=== PATIENT | female | born 1930 | race Caucasian/White ===

== ENCOUNTER 2022-01-11 10:42 | Inpatient (IN) | payer MEDICARE ==
[2022-01-11 11:36] LABS: Bilirubin Neg (Negative); Blood, Urine Negative (Negative); Clarity Clear (Clear); Glucose, Urine (Dipstick) Normal (Negative); Ketone, Urine Negative (Negative); Leukocyte Negative (Negative); Nitrite Negative (Negative); Protein, Urine (Dipstick) Negative (Neg-Trace); Specific Gravity, Urine 1.005 (1.002-1.036); Urobilinogen Normal mg/dL (Less than 2)
[2022-01-11 11:39] LABS: #Neutrophils 7.3 10x3/uL (1.5-8.4); %Basophils 0.4 % (0.0-2.0); %Eosinophils 0.4 % (0.0-6.0); %Lymphocytes 10.3 % (18.0-47.0); %Monocytes 10.2 % (0.0-10.0); %Neutrophils 78.3 % (40.0-75.0); Mean Corpuscular HGB CONC 32.9 g/dL (32.0-36.0); Mean Corpuscular Hemoglobin 28.3 pg (27.0-33.0); Mean Corpuscular Volume 85.9 fl (81.6-98.3); Mean Platelet Volume 10.4 fl (7.4-10.4); Platelet Count 188 10x3/uL (150-450); RBC Distribution Width 15.1 % (11.5-14.5); White Blood Cell (WBC) Count 9.3 10x3/uL (3.5-10.5)
[2022-01-11 11:50] LABS: INR-International Normal Ratio 0.9; PTT 25.8 sec (22.0-33.0); Prothrombin Time 9.9 sec (9.5-12.1)
[2022-01-11 11:53] LABS: ALT (SGPT) 16 U/L (8-55); AST (SGOT) 22 U/L (5-34); Albumin 3.5 g/dL (3.4-4.8); Alkaline Phosphatase 62 U/L (40-110); Anion Gap 13 mmol/L (10-20); BUN (Urea Nitrogen) 13 mg/dL (9.8-20.1); Bilirubin, Total 0.6 mg/dL (0.2-1.2); Calc. Creatinine Clearance 0 mL/min (70-130); Calcium 8.4 mg/dL (7.8-10.44); Carbon Dioxide 25 mmol/L (23-31); Chloride 102 mmol/L (98-107); Estimated GFR 70; Globulin 2.3 g/dL (2.4-3.5); Glucose 95 mg/dL (83-110); Potassium 3.8 mmol/L (3.5-5.1); Protein, Total 5.8 g/dL (5.8-8.1); Sodium 136 mmol/L (136-145)
[2022-01-11] MEDS ORDERED: hydrALAZINE 20 MG/ML VIAL SLOW IVP PRN (13:53)
[2022-01-11] MEDS ORDERED: Aspirin Chewable 81 MG TAB ONE (13:56)
[2022-01-11] MEDS ORDERED: Iopamidol 370 76% 100 ML VIAL ONE (15:40)
[2022-01-11 16:29] LABS: Troponin I 0.018 ng/mL (< 0.028)
[2022-01-11 18:24] LABS: Troponin I 0.018 ng/mL (< 0.028)
[2022-01-11] MEDS: Atorvastatin Calcium 40 MG TAB PO SCH (21:14)
[2022-01-11] MEDS ORDERED: Melatonin 3 MG TAB PO PRN (21:50)
[2022-01-12 05:58] LABS: Anion Gap 13 mmol/L (10-20); BUN (Urea Nitrogen) 13 mg/dL (9.8-20.1); Calc. Creatinine Clearance 37 mL/min (70-130); Carbon Dioxide 24 mmol/L (23-31); Cardiac Risk 4.9 (Less than 4.5); Chloride 101 mmol/L (98-107); Cholesterol 222 mg/dl (< 200 Desired); Estimated GFR 68; Glucose 121 mg/dL (83-110); HDL Cholesterol 45 mg/dL (>60 Neg Risk); LDL Cholesterol, Calculated 154 mg/dL; Potassium 3.3 mmol/L (3.5-5.1); Sodium 135 mmol/L (136-145); Triglycerides 115 mg/dL (Less than 150)
[2022-01-12 06:01] LABS: #Monocytes 0.7 10x3/uL (0.0-1.1); #Neutrophils 6.2 10x3/uL (1.5-8.4); %Basophils 0.5 % (0.0-2.0); %Eosinophils 0.2 % (0.0-6.0); %Lymphocytes 12.8 % (18.0-47.0); %Monocytes 9.2 % (0.0-10.0); %Neutrophils 76.8 % (40.0-75.0); Hemoglobin 13.6 g/dL (12.0-15.5); Mean Corpuscular Hemoglobin 28.3 pg (27.0-33.0); Mean Corpuscular Volume 83.3 fl (81.6-98.3); Mean Platelet Volume 10.8 fl (7.4-10.4); Platelet Count 203 10x3/uL (150-450); RBC Distribution Width 15.1 % (11.5-14.5)
[2022-01-12] MEDS ORDERED: Potassium Chloride 20 MEQ TAB PO SCH (08:15)
[2022-01-12] MEDS: Aspirin 81 mg Enteric Coated Tablet PO SCH (10:00)
[2022-01-12 11:14] VITALS: BMI 25.0
[2022-01-12 12:53] LABS: Hemoglobin A1c 5.8 % (4.0-6.0)
[2022-01-12] MEDS: Acetaminophen 500 MG TAB PO SCH ×2 (16:43→21:28)
[2022-01-12] MEDS: Atorvastatin Calcium 40 MG TAB PO SCH (21:28)
[2022-01-13] MEDS: Acetaminophen 500 MG TAB PO SCH ×3 (08:36→20:07)
[2022-01-13] MEDS: Aspirin 81 mg Enteric Coated Tablet PO SCH (08:36)
[2022-01-13] MEDS ORDERED: Enoxaparin Sodium 30 MG/0.3 ML SYRINGE SC SCH (12:00)
[2022-01-13 13:08] LABS: #Eosinphils 0.1 10x3/uL (0.0-0.5); #Monocytes 0.7 10x3/uL (0.0-1.1); #Neutrophils 6.2 10x3/uL (1.5-8.4); %Basophils 0.2 % (0.0-2.0); %Eosinophils 0.7 % (0.0-6.0); %Lymphocytes 14.7 % (18.0-47.0); %Monocytes 8.7 % (0.0-10.0); %Neutrophils 75.3 % (40.0-75.0); Hemoglobin 14.2 g/dL (12.0-15.5); Mean Corpuscular HGB CONC 33.1 g/dL (32.0-36.0); Mean Corpuscular Hemoglobin 27.9 pg (27.0-33.0); Mean Corpuscular Volume 84.3 fl (81.6-98.3); Mean Platelet Volume 10.6 fl (7.4-10.4); Platelet Count 241 10x3/uL (150-450); RBC Distribution Width 15.1 % (11.5-14.5); Red Blood Cell (RBC) Count 5.09 10x6/uL (3.90-5.03); White Blood Cell (WBC) Count 8.2 10x3/uL (3.5-10.5)
[2022-01-13 13:35] LABS: Anion Gap 13 mmol/L (10-20); BUN (Urea Nitrogen) 19 mg/dL (9.8-20.1); Calc. Creatinine Clearance 34 mL/min (70-130); Calcium 9.1 mg/dL (7.8-10.44); Carbon Dioxide 24 mmol/L (23-31); Chloride 103 mmol/L (98-107); Estimated GFR 63; Glucose 95 mg/dL (83-110); Potassium 4.1 mmol/L (3.5-5.1); Sodium 136 mmol/L (136-145)
[2022-01-13] MEDS: Atorvastatin Calcium 40 MG TAB PO SCH (20:06)
[2022-01-14 04:10] LABS: #Eosinphils 0.1 10x3/uL (0.0-0.5); #Monocytes 0.7 10x3/uL (0.0-1.1); #Neutrophils 5.5 10x3/uL (1.5-8.4); %Basophils 0.3 % (0.0-2.0); %Eosinophils 0.9 % (0.0-6.0); %Lymphocytes 20.1 % (18.0-47.0); %Monocytes 8.2 % (0.0-10.0); %Neutrophils 70.2 % (40.0-75.0); Hemoglobin 13.4 g/dL (12.0-15.5); Mean Corpuscular HGB CONC 33.6 g/dL (32.0-36.0); Mean Corpuscular Hemoglobin 27.6 pg (27.0-33.0); Mean Corpuscular Volume 82.1 fl (81.6-98.3); Mean Platelet Volume 10.3 fl (7.4-10.4); Platelet Count 223 10x3/uL (150-450); RBC Distribution Width 15.1 % (11.5-14.5); Red Blood Cell (RBC) Count 4.86 10x6/uL (3.90-5.03); White Blood Cell (WBC) Count 7.9 10x3/uL (3.5-10.5)
[2022-01-14 04:18] LABS: Anion Gap 15 mmol/L (10-20); BUN (Urea Nitrogen) 16 mg/dL (9.8-20.1); Calc. Creatinine Clearance 35 mL/min (70-130); Calcium 8.9 mg/dL (7.8-10.44); Carbon Dioxide 23 mmol/L (23-31); Chloride 103 mmol/L (98-107); Estimated GFR 65; Glucose 102 mg/dL (83-110); Potassium 3.9 mmol/L (3.5-5.1); Sodium 137 mmol/L (136-145)
[2022-01-14] MEDS: Enoxaparin Sodium 30 MG/0.3 ML SYRINGE SC SCH (09:50)
[2022-01-14] MEDS: Acetaminophen 500 MG TAB PO SCH ×3 (09:51→20:18)
[2022-01-14] MEDS: Aspirin 81 mg Enteric Coated Tablet PO SCH (09:51)
[2022-01-14] MEDS: Atorvastatin Calcium 40 MG TAB PO SCH (20:18)
[2022-01-15 05:55] LABS: Anion Gap 15 mmol/L (10-20); BUN (Urea Nitrogen) 14 mg/dL (9.8-20.1); Calc. Creatinine Clearance 39 mL/min (70-130); Calcium 8.7 mg/dL (7.8-10.44); Carbon Dioxide 21 mmol/L (23-31); Chloride 105 mmol/L (98-107); Estimated GFR 73; Glucose 90 mg/dL (83-110); Sodium 137 mmol/L (136-145)
[2022-01-15 06:17] LABS: #Monocytes 0.7 10x3/uL (0.0-1.1); #Neutrophils 5.4 10x3/uL (1.5-8.4); %Basophils 0.2 % (0.0-2.0); %Eosinophils 0.5 % (0.0-6.0); %Lymphocytes 24.2 % (18.0-47.0); %Monocytes 8.1 % (0.0-10.0); %Neutrophils 66.6 % (40.0-75.0); Hemoglobin 13.6 g/dL (12.0-15.5); Mean Corpuscular HGB CONC 33.9 g/dL (32.0-36.0); Mean Corpuscular Hemoglobin 27.8 pg (27.0-33.0); Mean Corpuscular Volume 81.8 fl (81.6-98.3); Mean Platelet Volume 10.4 fl (7.4-10.4); Platelet Count 217 10x3/uL (150-450); White Blood Cell (WBC) Count 8.1 10x3/uL (3.5-10.5)
[2022-01-15] MEDS: Enoxaparin Sodium 30 MG/0.3 ML SYRINGE SC SCH (07:59)
[2022-01-15] MEDS: Aspirin 81 mg Enteric Coated Tablet PO SCH (07:59)
[2022-01-15] MEDS: Acetaminophen 500 MG TAB PO SCH ×3 (07:59→20:37)
[2022-01-15] MEDS: Atorvastatin Calcium 40 MG TAB PO SCH (20:05)
[2022-01-15] MEDS: Gabapentin 100 MG CAP PO SCH (20:38)
[2022-01-15] MEDS ORDERED: Melatonin 3 MG TAB PO SCH (21:00)
[2022-01-16] MEDS ORDERED: Amlodipine 5 MG TAB PO SCH (09:00)
[2022-01-16] MEDS ORDERED: Enoxaparin Sodium 30 MG/0.3 ML SYRINGE ONE (09:26)
[2022-01-16] MEDS: Acetaminophen 500 MG TAB PO SCH (09:30)
[2022-01-16] MEDS: Aspirin 81 mg Enteric Coated Tablet PO SCH (09:30)
[2022-01-16] MEDS: Enoxaparin Sodium 30 MG/0.3 ML SYRINGE SC SCH (09:31)
[2022-01-16] MEDS: Gabapentin 100 MG CAP PO SCH (09:31)
[2022-01-16 13:14] VITALS: BP 125/62; TEMP 98.5
== END 2022-01-16 14:20 | DRG 64 ==
LOC: CSHERS 10:42 → CSHTELE 14:29 → OBSVTOIN 01-12 16:23
PROVIDERS: ADMIT Hospitalist; ATTEND Hospitalist
PROC: 8E0ZXY6 Isolation (ICD-10-PCS; principal; 2022-01-12)
DX: I63.521 Cerebral infarction due to unspecified occlusion or stenosis of right anterior cerebral artery (principal); U07.1 COVID-19; G81.94 Hemiplegia, unspecified affecting left nondominant side; F32.A Depression, unspecified; I10 Essential (primary) hypertension; R29.712 NIHSS score 12; I44.0 Atrioventricular block, first degree; R29.810 Facial weakness; R47.81 Slurred speech; Z98.890 Other specified postprocedural states; Z88.5 Allergy status to narcotic agent; Z79.899 Other long term (current) drug therapy
CPT/HCPCS: 36415; 70450; 70496; 70498; 70551; 80048; 80053; 80061; 81003; 83036; 84443; 84484; 85025; 85610; 85730; 93005; 93010; 93306; 94760; G0378; J1650; Q9967